=== PATIENT | male | born 1980 | race Caucasian/White ===

== ENCOUNTER 2018-08-25 12:08 | Emergency (ER) | payer OTHER ==
[2018-08-25 12:22] VITALS: BP 112/76; PULSE 65; TEMP 97.9; BMI 28.3
--- NOTE | 2018-08-25 13:51 | PDOC ---
History of Present Illness - General Chief Complaint: Cold Symptoms Stated Complaint: SORE THROAT Time Seen by Provider: 08/25/18 13:31 - History of Present Illness Initial Comments: 08/25/18 13:50 37-year-old male with multiple sick contacts at home all with viral upper respiratory infections presents for flulike symptoms times one day he has no comorbidities. Past History - Past Medical History Allergies/Adverse Reactions: Allergies Allergy/AdvReac Type Severity Reaction Status Date / Time No Known Allergies Allergy Verified 08/25/18 12:19 Home Medications: Ambulatory Orders Oseltamivir Phosphate [Tamiflu] 75 mg PO BID #10 capsule 08/25/18 COPD: No - Surgical History Abdominal Surgery: Yes (inguinal hernia repairs) - Suicide/Smoking/Psychosocial Hx Smoking Status: No Smoking History: Never smoked Number of Cigarettes Smoked Daily: 0 Review of Systems - Review of Systems Constitutional: Yes: Chills, Fever, Malaise, Night Sweats HEENTM: Yes: Nose Congestion Respiratory: Yes: Cough *Physical Exam - Vital Signs Last Vital Signs Temp Pulse Resp BP Pulse Ox 97.9 F 65 18 112/76 97 08/25/18 12:20 08/25/18 12:20 08/25/18 12:20 08/25/18 12:20 08/25/18 12:20 - Physical Exam Comments: 08/25/18 13:50 HEAD: NC/AT EYES: Conjuntiva clear Ears: Canals and TM's normal NOSE: No d/c THROAT: Moist mucous membrances, oral pharanx clear, uvula midline NECK: Supple without adenopathy CARDIAC: S1 S2 LUNGS: CTA Full and Equal breath sounds ABDOMEN: Soft NT ND MS: Full ROM in all joints without edema NEUROLOGIC: No gross sensory or motor deficits, NVID SKIN: Normal color and temperature no lesions or rashes Medical Decision Making - Medical Decision Making 08/25/18 13:50 We'll treat for flu based on sick contacts an onset of symptoms *DC/Admit/Observation/Transfer Diagnosis at time of Disposition: Influenza - Discharge Dispostion Disposition: HOME Condition at time of disposition: Stable Decision to Admit order: No - Prescriptions Prescriptions: Oseltamivir Phosphate [Tamiflu] 75 mg PO BID #10 capsule - Referrals Referrals: Priya Fowler MD [Primary Care Provider] - - Patient Instructions Printed Discharge Instructions: Influenza Additional Instructions: To the emergency room for worsening symptoms. Please take the Tamiflu as directed. Follow-up with your primary care physician in one to 2 days for further evaluation and treatment options. Tylenol and Motrin as directed for pain and fever control. - Post Discharge Activity
== END 2018-08-25 14:03 | disposition home or self-care (01) ==
LOC: JERFT 12:08
DX: J11.1 Influenza due to unidentified influenza virus with other respiratory manifestations (principal)
CPT/HCPCS: 99281-25

== ENCOUNTER 2021-02-01 09:45 | Emergency (ER) | payer OTHER ==
[2021-02-01 09:52] VITALS: BP 149/46; PULSE 89; TEMP 98.3; BMI 32.5
[2021-02-01] MEDS ORDERED: FAMOTIDINE 20 MG TABLET PO ONE (11:03)
[2021-02-01] MEDS ORDERED: FAMOTIDINE 20 MG TABLET ONE (11:18)
[2021-02-01 11:40] LABS: BASO % 0.3 % (0-2.0); EOS % 1.4 % (0-4.5); HEMATOCRIT 43.3 % (35.4-49); LYMPH % 28.6 % (8-40); MCH 32.3 pg (25.7-33.7); MCHC 34.7 g/dl (32.0-35.9); MEAN CELL VOLUME 93.1 fl (80-96); MEAN PLT VOLUME 8.8 fl (7.5-11.1); MONO % 13.1 % (3.8-10.2); NEUT % 56.6 % (42.8-82.8); PLATELET COUNT 199 10^3/uL (134-434); RBC 4.65 M/mm3 (4.00-5.60); RDW 12.8 % (11.9-15.9); WHITE BLOOD COUNT 11.7 K/mm3 (4.0-10.0)
[2021-02-01 12:00] LABS: BLOOD UREA NITROGEN 13.6 mg/dL (7-18); CALCIUM 8.6 mg/dL (8.5-10.1)
[2021-02-01 12:03] LABS: CREATININE 1.1 mg/dL (0.55-1.3)
[2021-02-01 12:05] LABS: TOT PROT 7.7 g/dl (6.4-8.2)
[2021-02-01 12:10] LABS: BILIRUBIN,TOTAL 0.4 mg/dL (0.2-1)
[2021-02-01 12:14] LABS: ALBUMIN 3.9 g/dl (3.4-5.0)
== END 2021-02-01 12:50 | disposition home or self-care (01) ==
LOC: JERFT 09:45 → JER 09:45 → JERFT 12:50
DX: R10.13 Epigastric pain (principal); K21.9 Gastro-esophageal reflux disease without esophagitis
CPT/HCPCS: 36415; 76705-TC; 80053; 83690; 85025; 99284-25